=== PATIENT | male | born 1980 | race Two or more races ===

== ENCOUNTER 2019-02-22 15:32 | Outpatient (CLI) | payer OTHER | END 2019-02-22 15:38 | disposition home or self-care (01) | LOC: RAD 501 15:32 | DX: J44.1 Chronic obstructive pulmonary disease with (acute) exacerbation (principal); J01.80 Other acute sinusitis ==

== ENCOUNTER 2024-02-22 10:17 | Outpatient (CLI) | payer OTHER | END 2024-02-22 10:26 | disposition home or self-care (01) | LOC: RAD 10:17 | PROVIDERS: ATTEND Orthopaedic Surgery | DX: M25.572 Pain in left ankle and joints of left foot (principal) ==

== ENCOUNTER 2025-05-03 14:23 | Emergency (ER) | payer OTHER ==
[~2025-05-03] VITALS: Ht 175.3 cm; Wt 81.6 kg
[2025-05-03] MEDS ORDERED: DEXAMETHASONE SODIUM PHOSPHATE 4 MG/ML VIAL IM STA (15:00)
[2025-05-03] MEDS ORDERED: KETOROLAC TROMETHAMINE 15 MG VIAL IM STA (15:00)
[2025-05-03] MEDS ORDERED: KETOROLAC TROMETHAMINE 30 MG VIAL ONE (15:40)
[2025-05-03] MEDS ORDERED: DEXAMETHASONE SODIUM PHOSPHATE 4 MG/ML VIAL ONE (15:40)
[2025-05-03] MEDS ORDERED: DICLOFENAC SODI75 MG PO (18:59)
== END 2025-05-03 19:38 | disposition home or self-care (01) ==
LOC: ER 14:36
DX: T14.8XXA Other injury of unspecified body region, initial encounter (principal); V49.9XXA Car occupant (driver) (passenger) injured in unspecified traffic accident, initial encounter; Y93.89 Activity, other specified; Y92.413 State road as the place of occurrence of the external cause; Y99.9 Unspecified external cause status; Z88.0 Allergy status to penicillin